=== PATIENT | male | born 1985 | race Hispanic/Latino ===

== ENCOUNTER 2022-07-11 16:15 | Emergency (ER) | payer SELFPAY ==
[~2022-07-11] VITALS: Ht 170.2 cm; Wt 58.0 kg
[2022-07-11 19:08] VITALS: BP 142/121
[2022-07-11] MEDS ORDERED: AMOXICILLIN500 MG PO (19:25)
[2022-07-11] MEDS ORDERED: NAPROXEN500 MG PO (19:25)
[2022-07-11 19:30] VITALS: BP 141/91
== END 2022-07-11 19:37 | disposition home or self-care (01) | DRG 607 ==
LOC: ED 16:15
PROC: 0HTRXZZ Resection of Toe Nail, External Approach (ICD-10-PCS; principal; 2022-07-11)
DX: L60.0 Ingrowing nail (principal)